=== PATIENT | male | born 1990 | race Caucasian/White ===

== ENCOUNTER 2017-06-10 08:39 | Inpatient (IN) | payer BC, OTHER ==
[~2017-06-10] VITALS: Ht 165.1 cm; Wt 95.3 kg
[2017-06-10 10:30] VITALS: BP 137/85
--- NOTE | 2017-06-10 10:30 | NUR ---
PRE-ADMISSION Pt is a 26 yr old male, AA&Ox4. pt is presenting himself to [facility] for ETOH use and Benzo use. Pt is accompanied by his parents. Pt is noted with anxiety m/b difficulty staying still. Pt states last use was on 06/09/17. VS are 137/85, P 91, R 16, O2 96%, T 97.9. Pt was seen and examined by Dr. Powers. Pt will be admitted to the 3rd floor.
[2017-06-10] MEDS ORDERED: MIRALAX 17 GM POWD.PACK PO PRN (11:00)
[2017-06-10] MEDS ORDERED: MAGNESIUM HYDROXIDE 30 ML LIQUID UDC PO PRN (11:00)
[2017-06-10] MEDS ORDERED: IBUPROFEN 400 MG TABLET PO PRN (11:00)
[2017-06-10] MEDS ORDERED: MAG HYDROX/AL HYDROX/SIMETH 30 ML LIQUID UDC PO PRN (11:00)
[2017-06-10] MEDS ORDERED: LORAZEPAM 2 MG/1 ML VIAL IM PRN (11:00)
[2017-06-10] MEDS ORDERED: ONDANSETRON ODT 4 MG TAB.RAPDIS SL PRN (11:00)
[2017-06-10] MEDS ORDERED: THIAMINE HCL 200 MG/2 ML VIAL IM ONE (11:00)
[2017-06-10] MEDS ORDERED: ONDANSETRON 4 MG/2 ML VIAL IM PRN (11:00)
[2017-06-10] MEDS ORDERED: CLONIDINE HCL 0.1 MG TABLET PO PRN (11:00)
[2017-06-10] MEDS ORDERED: LOPERAMIDE HCL 2 MG CAPSULE PO PRN ×2 (11:00)
[2017-06-10] MEDS ORDERED: LORAZEPAM 1 MG TABLET PO PRN ×2 (11:00)
[2017-06-10] MEDS ORDERED: DICYCLOMINE HCL 20 MG TABLET PO PRN (11:00)
--- NOTE | 2017-06-10 11:30 | NUR ---
MEDICATION REFUSED Pt refused to take Vitamin B1 1ml IM x3. Pt was educated on benefits of Vit B1 but pt refused.
[2017-06-10 11:39] LABS: *AMPHETAMINE, URINE NEGATIVE (NEGATIVE); *BARBITURATE, URINE NEGATIVE (NEGATIVE); *CANNABINOID, URINE NEGATIVE (NEGATIVE); *COCCAINE, URINE NEGATIVE (NEGATIVE); *OPIATE, URINE POSITIVE (NEGATIVE); *PHENCYCLIDINE SCREEN,URINE NEGATIVE (NEGATIVE)
[2017-06-10 11:40] LABS: BASOPHILS # (AUTO) 0.1 K/uL (0.0-8.0); BASOPHILS % (AUTO) 0.8 % (0.0-2.0); EOSINOPHILS # (AUTO) 0.3 K/uL (0.0-0.7); EOSINOPHILS % (AUTO) 3.4 % (0.0-7.0); HEMATOCRIT 44.5 % (36.7-47.1); HEMOGLOBIN 15.6 g/dL (12.5-16.3); LYMPHOCYTES # (AUTO) 1.8 K/uL (20.0-40.0); LYMPHOCYTES % (AUTO) 22.1 % (20.5-51.5); MEAN CORPUSCULAR HEMOGLOBIN 32.4 uug (23.8-33.4); MEAN CORPUSCULAR HGB CONC 35 g/dL (32.5-36.3); MEAN CORPUSCULAR VOLUME 92.7 fL (73.0-96.2); MONOCYTES # (AUTO) 0.8 K/uL (2.0-10.0); MONOCYTES % (AUTO) 9.4 % (0.0-11.0); NEUTROPHILS # (AUTO) 5.2 K/uL (1.8-8.9); NEUTROPHILS % (AUTO) 64.3 % (38.5-71.5); PLATELET COUNT (AUTO) 260 K/uL (152-348); WHITE BLOOD COUNT (AUTO) 8.1 K/uL (3.6-10.2)
[2017-06-10 11:56] LABS: ALANINE AMINOTRANSFERASE 103 U/L (16-63); ALKALINE PHOSPHATASE 102 U/L (50-136); AMYLASE 32 U/L (25-115); ASPARTATE AMINOTRANSFERASE 66 U/L (15-37); BILIRUBIN,TOTAL 0.5 mg/dL (0.2-1.0); CARBON DIOXIDE 26 mmol/L (21-32); CHLORIDE 106 mmol/L (98-107); GLUCOSE 94 mg/dL (74-106); MAGNESIUM 1.9 mg/dL (1.8-2.4); POTASSIUM 4.4 mmol/L (3.5-5.1); TOTAL PROTEIN, SERUM 7.1 g/dL (6.4-8.2); UREA NITROGEN, BLOOD 20 mg/dL (7-18)
[2017-06-10 11:58] LABS: ETHANOL < 3 MG/DL (0-0)
[2017-06-10 12:00] VITALS: BP 131/92
[2017-06-10] MEDS: LORAZEPAM 1 MG TABLET PO SCH ×3 (13:32→20:30)
--- NOTE | 2017-06-10 14:18 | NUR ---
ADMISSION NOTE Pt is a 26 yr old male, AA&Ox4. Pt is presenting himself to [facility] for etoh and benzo use. Pt is observed wtih increase anxiety m/b difficulty staying still. Skin is intact, warm and moist to touch. Pt is c/o nausea and headache. Pt denies any SI/HI. Pt states of having PMH of Anxiety and Depression and Gynecomastia reduction surgery. Pt denies any hx of seizures. Pt denies any home medication and PCP. Pt states he would use substances to "numb" his depression. SUBSTANCE USE: 1. ETOH - Pt states of binge drinking 750ml of Vodka, Gin and occasionally beer 3-4 days a week. Pt states of drinking at the age of 22 yrs old but has worsen about 1.5 yrs ago. Last drink was on 06/09/17, pt states of drinking 500mL of vodka. 2. Xanax - Pt states of consuming 6-10mg PO PRN on a daily basis for the past 1.5 yrs. Pt states of first using Xanax was at the age of 19 yrs old. Last use was on 06/09/17, Pt states of taking Addendum: 06/10/17 at 1551 by CHADWICK ACEVEDO LVN Continuation of documentation: 4mg PO. 3. Hydrocodone - Pt states of taking intermittently unknown amounts. Pt states he started taking it "a few months ago". Pt states that on 06/09/17 was the last use and took 15mg. 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 Pt states he relapsed to suppress his emotions. CIWA score upon admissions is 11. Pt was seen and examined by Dr. Powers with new order to start on 5 day Ativan taper. Pt was educated on plan of care and medication regimen. Pt was able to verbalize understanding. Pt was oriented to unit and room. Pt will be on seizure precautions. Bed kept in low position and locked with side rails up x2. Pt denies any allergies and follows a regular diet. Will continue to monitor.
[2017-06-10 16:00] VITALS: BP 131/76
--- NOTE | 2017-06-10 19:18 | NUR ---
END OF SHIFT Pt is a 26 yr old male, AA&Ox4. Pt is a newly admitted for ETOH/Benzo withdrawal and started on 5 day Ativan taper as ordered. Pt has been noted with increase anxiety m/b difficulty staying still and fidgety. Pt c/o nausea and headache but refused Zofran PRN and Motrin PRN. Pt was encouraged increase fluid intake for hydration. Skin is intact, warm and moist to touch. No PRNs were given. Last CIWA score was 8 at 1600. Pt is on seizure precautions. Bed kept in low position and locked with side rails padded and up x2. Call light is within reach.
--- NOTE | 2017-06-10 19:18 | NUR ---
START OF SHIFT NOTE: 26 year old male presented for Benzodiazepines/Xanax, ETOH/Vodka, and Hydrocodone withdrawal, continues ordered 5 day Ativan taper, which tolerated well. Patient reports NKA, Patient is on Seizures and Fall Precautions. Patient is alert and oriented x4, denies hallucinations and SI/HI. Patient appears sad with poor eye contact. Encouraged to express his feelings. Patient noted disheveled, unkempt with uncombed hair. CIWA =8 @1600 per day shift nurse report: patient presented with anxiety, agitation, nervousness, restlessness, fatigue, sweating, nausea, and headache. Patient remains compliant with treatment, medications, and diet regime per day shift nurse report. No PRN Medications was given during the day shift. Encouraged to fluids intake as tolerated. Encouraged to attend group activities. All needs met. Safety measures in place: Call light within reach, bed is locked in lowest position, padded bed rails up bilaterally. Patient endorsed by outgoing day shift nurse. Will continue to monitor closely.
[2017-06-10 20:00] VITALS: BP 150/104
[2017-06-10] MEDS: diphenhydrAMINE 50 MG CAPSULE PO PRN (20:21)
--- NOTE | 2017-06-10 20:21 | NUR ---
PRN BENADRYL 50 MG 1 CAPSULE PO ADMINISTRATION PRN BENADRYL 50 MG PO ADMINISTRATED FOR INSOMNIA ORDERED. PATIENT TOLERATED WELL. ALL SAFETY MEASURES IN PLACE: CALL LIGHT WITHIN REACH, BED LOCKED IN LOWEST POSITION, PADDED BED RAILS UP X2. WILL CONTINUE TO MONITOR CLOSELY.2200
--- NOTE | 2017-06-10 20:24 | NUR ---
PRN CLONIDINE 0.1 MG 1 TAB PO ADMINISTRATION PRN Clonidine 0.1 mg 1 tab PO administrated for BP 150/104 as ordered. Patient tolerated well. All needs met. Safety measures in place: Call light within reach, bed is locked in lowest position, padded bed rails up bilaterally. Will continue to monitor closely.
--- NOTE | 2017-06-10 21:21 | NUR ---
RE-ASSESSMENT PRN Benadryl 50 mg PO administrated for insomnia @ as ordered was effective. Patient is sleeping. RR 16. Respirations are even and unlabored. All needs met. Safety measures in place: Call light within reach, bed is locked in lowest position, padded bed rails up bilaterally. Will continue to monitor closely. Addendum: 06/11/17 at 0134 by BRYAN LOBO RN PRN Benadryl 50 mg PO administrated for insomnia @2120 as ordered was effective.
--- NOTE | 2017-06-10 21:24 | NUR ---
RE-ASSESSMENT BP 126/76. PRN Clonidine 0.1 mg 1 tab administrated for BP 150/104 @2023 was effective. Patient is sleeping. RR 16. Respirations are even and unlabored. All needs met. Safety measures in place: Call light within reach, bed is locked in lowest position, padded bed rails up bilaterally. Will continue to monitor closely.
[2017-06-10] MEDS: ACETAMINOPHEN 325 MG TABLET PO PRN (22:08)
--- NOTE | 2017-06-10 22:08 | NUR ---
PRN TYLENOL 650 MG PO ADMINISTRATION PRN TYLENOL 650 MG ADMINISTRATED FOR BODY ACHES "9/10" ORDERED. PATIENT TOLERATED WELL. ALL SAFETY MEASURES IN PLACE: CALL LIGHT WITHIN REACH, BED LOCKED IN LOWEST POSITION, PADDED BED RAILS UP X2. WILL CONTINUE TO MONITOR CLOSELY.
--- NOTE | 2017-06-10 23:08 | NUR ---
RE-ASSESSMENT PRN Tylenol 650 mg PO administrated for body aches "/" @2208 as ordered was effective. Patient is sleeping. RR 15. Respirations are even and unlabored. All needs met. Safety measures in place: Call light within reach, bed is locked in lowest position, padded bed rails up bilaterally. Will continue to monitor closely.
[2017-06-11] VITALS: BP 137/86
[2017-06-11 04:00] VITALS: BP 126/79
--- NOTE | 2017-06-11 07:35 | NUR ---
START OF SHIFT Pt is a 26 yr old male, AA&Ox4. Pt was admitted on 06/10/17 for ETOH/Benzo withdrawal and is on 5 day Ativan taper as ordered. Received report from computer network and systems engineer nurse. Pt was given Clonidine PO PRN, Tylenol, PRN, and Benadryl PO PRN during the night. Medication was effective. Pt slept for 8 hrs. Last CIWA score was 8. Pt is currently in bed sleeping with respirations even and unlabored. Skin is intact, warm and moist to touch. Pt is on seizure precautions. Bed kept in low position and locked with side rails padded and up x2. Call light is within reach. Will continue to monitor.
[2017-06-11 08:06] LABS: HEPATITIS B SURFACE AG Negative (Negative)
[2017-06-11 08:19] VITALS: BP 139/98
[2017-06-11] MEDS: MULTIVITAMINS,THERAPEUTIC TABLET PO SCH (08:49)
[2017-06-11] MEDS: THIAMINE HCL 100 MG TABLET PO SCH (08:49)
[2017-06-11] MEDS: LORAZEPAM 1 MG TABLET PO SCH ×3 (08:49→20:33)
[2017-06-11] MEDS: FOLIC ACID 1 MG TABLET PO SCH (08:49)
[2017-06-11] MEDS ORDERED: TUBERCULIN,PURIF.PROT.DERIV. 5 TU/0.1 ML TEST ID ONE (09:00)
[2017-06-11] MEDS ORDERED: BUPRENORPHINE HCL 2 MG TAB.SUBL SL PRN (10:15)
[2017-06-11 12:21] VITALS: BP 119/93
[2017-06-11] MEDS: BUPRENORPHINE HCL 2 MG TAB.SUBL SL PRN (12:35)
[2017-06-11] MEDS: IBUPROFEN 600 MG TABLET PO PRN (12:35)
[2017-06-11] MEDS: METHOCARBAMOL 750 MG TABLET PO PRN (12:35)
--- NOTE | 2017-06-11 12:37 | NUR ---
PRN GIVEN Pt is c/o increase anxiety and muscle aches. pt is noted with facial sweats and enlarged pupils. COWS score is 8. Subutex 2mg SL PRN, Motrin 600mg PO PRN and Robaxin 750mg PO PRN was given as ordered. Medication grant well. Encouraged increase fluid intake. Will continue to monitor.
--- NOTE | 2017-06-11 13:36 | NUR ---
PRN RE-ASSESSMENT Subutex 2mg SL PRN, Motrin 600mg PO PRN and Robaxin 750mg PO PRN was effective. Pt states, "I feel much better". COWS score is 5. Encouraged increase fluid intake. Will continue to monitor.
[2017-06-11 16:00] VITALS: BP 142/87
--- NOTE | 2017-06-11 19:12 | NUR ---
END OF SHIFT Pt is a 26 yr old male, AA&Ox4. Pt was admitted on 06/10/17 for ETOH/Benzo withdrawal and is on 5 day Ativan taper as ordered. Pt has been noted with increase anxiety m/b difficulty staying still and fidgety. Pt c/o generalized body aches. Pt received Motrin 600mg PO PRN, Robaxin 750mg PO PRN and Subutex 2 mg SL PRN for COWS score of 8 at 1235. Medication was effective. Pt was encouraged increase fluid intake. Pt has been cooperative with medication regimen and plan of care. Pt attended group. Skin is intact, warm and moist to touch. Last CIWA score was 9 and COWS score was 5 at 1600. Pt is on seizure precautions. Bed kept in low position and locked with side rails padded and up x2. Call light is within reach.
--- NOTE | 2017-06-11 19:12 | NUR ---
START OF SHIFT NOTE: Patient continues 5 day Ativan Taper ordered for Benzodiazepines/Klonopin PO, Opioid/Bighorn PO withdrawal. He is tolerated well. Patent reports NKA, is on Full Code, Regular Diet, is on Fall and Seizures Precautions. Patient denies history of withdrawal-induced seizures. Patient is alert and oriented x4. Patient appears anxious, agitated, c/o irritability, sad, worry, and easily overwhelmed. He is noted unshaven, disheveled, unkempt, and uncombed. His clothes are scattered all over the floor. Encouraged to independently perform hygiene care. Education provided in safety and hygiene care. Patient verbalized understanding. Last COWS=8,CIWA=7 @1635. During the day shift patient presented with moderate withdrawal symptoms of anxiety, agitation, nervousness, stomach cramps, tremors, sweating, nasal congestion, and body aches. PRN Subutex 2 mg SL PO administrated for anxiety, COWS=8 @1237, PRN Motrin 600 mg PO administrated @1237 for severe body aches, and PRN Robaxin 750 mg PO administrated for myalgia were effective per day shift nurse report. Patient remains compliant with treatment, medications and diet regime. Respirations are even and unlabored. Patient denies chest pain and cough. Skin remains intact, warm and dry to touch. Encouraged to fluid intake as tolerated. Patient attended day groups activities. All needs met. Safety measures in place: Call light within reach, bed is locked in lowest position, padded bed rails up bilaterally. Patient endorsed by day shift nurse. Will continue to monitor closely.
[2017-06-11 20:00] VITALS: BP 153/94
[2017-06-11] MEDS: GABAPENTIN 300 MG CAPSULE PO SCH (20:33)
[2017-06-11] MEDS: CLONIDINE HCL 0.1 MG TABLET PO SCH (20:33)
[2017-06-11] MEDS: diphenhydrAMINE 50 MG CAPSULE PO PRN (20:33)
--- NOTE | 2017-06-11 20:33 | NUR ---
PRN BENADRYL 50 MG 1 CAP PO ADMINISTRATION Patient c/o insomnia and asked aid. PRN Benadryl 50 mg 1 cap PO administrated with full glass of water as ordered. Patient tolerated well. All needs met. Safety measures on place. Call light within reach, bed in lowest position locked, padded rails up bilaterally. Will continue to monitor closely.
--- NOTE | 2017-06-11 21:33 | NUR ---
RE-ASSESSMENT Patient is sleeping. RR 16. Respirations even and unlabored. PRN Benadryl 50 mg 1 cap PO administrated for insomnia @2032 as ordered was effective. All needs met. Safety measures on place. Call light within reach, bed in lowest position locked, padded rails up bilaterally. Will continue to monitor closely.
[2017-06-12] VITALS: BP 123/68
[2017-06-12 04:00] VITALS: BP 123/72
--- NOTE | 2017-06-12 06:53 | NUR ---
END OF SHIFT NOTE Patient is a 26 year male admitted for Benzodiazepines/Xanax, Alcohol/"Vodka" and Opioid/Hydrocodone withdrawal under medical supervision, continues ordered 5 Day Ativan Taper. Withdrawal symptoms was closely monitored. Patient tolerated well. Patient is alert and oriented x4. CIWA=8@2000, ,CIWA=9 @0000, and the most recent, CIWA=8@0400. Patient presented with anxiety, agitation, nervousness, nasal congestion, tremors, diaphoresis, insomnia, mild headache and general body discomfort, such as bloating, body aches, myalgia, and restlessness. Patient appears worry with poor eye contact. Education provided to use of Relaxation Techniques: deep breathing exercises, guided imagery, and visualization. Patient noted disheveled, unshaven, unkempt, and uncombed. His clothes are scattered around the room on the floor. Education in safety and hygiene care provided. Encouraged to independently perform hygiene care. PRN Benadryl 50 mg PO administrated for insomnia @2032 was effective. Patient slept 6 hours, intake 1,302 ml, voided x4. All needs met. Safe and calm environment with minimized noises was provided. Patient slept 7 hours, intake 700 ml, voided x3. Safety measures in the place: Call light within reach, bed in the lowest position locked, padded rails up x2. Patient endorsed to day shift nurse.
--- NOTE | 2017-06-12 07:30 | NUR ---
START OF SHIFT Pt is a 26 yr old male, AA&Ox4. Pt was admitted on 06/10/17 for ETOH/Benzo withdrawal and is on 5 day Ativan taper as ordered. Received report from shift production associate nurse. Pt was given Benadryl PO PRN for sleep during the night. Medication was effective. Pt slept for 7 hrs. Last CIWA score was 8. Pt is currently in bed resting in be with respirations even and unlabored. Pt is c/o generalized pain and increase anxiety. Skin is intact, warm and moist to touch. Pt is on seizure precautions. Bed kept in low position and locked with side rails padded and up x2. Call light is within reach. Will continue to f/u.
[2017-06-12 08:00] VITALS: BP 138/78
[2017-06-12] MEDS ORDERED: LORAZEPAM 1 MG TABLET PO SCH ×2 (09:00→21:00)
[2017-06-12] MEDS: BUPRENORPHINE HCL 2 MG TAB.SUBL SL PRN (09:15)
[2017-06-12] MEDS: METHOCARBAMOL 750 MG TABLET PO PRN (09:15)
[2017-06-12] MEDS: MULTIVITAMINS,THERAPEUTIC TABLET PO SCH (09:15)
[2017-06-12] MEDS: FOLIC ACID 1 MG TABLET PO SCH (09:15)
[2017-06-12] MEDS: IBUPROFEN 600 MG TABLET PO PRN (09:15)
[2017-06-12] MEDS: GABAPENTIN 300 MG CAPSULE PO SCH ×3 (09:15→20:41)
[2017-06-12] MEDS: THIAMINE HCL 100 MG TABLET PO SCH (09:15)
--- NOTE | 2017-06-12 09:15 | NUR ---
PRN GIVEN Pt is c/o increase anxiety and muscle aches. pt is noted with facial sweats and enlarged pupils. COWS score is 9. Subutex 2mg SL PRN, Motrin 600mg PO PRN and Robaxin 750mg PO PRN was given as ordered. Medication grant well. Encouraged increase fluid intake. Will continue to monitor.
[2017-06-12] MEDS: CLONIDINE HCL 0.1 MG TABLET PO SCH ×3 (09:16→20:42)
--- NOTE | 2017-06-12 10:00 | NUR ---
PRN RE-ASSESSMENT Motrin PRN, Robaxin PRN, Subutex 2mg SL PRN was effective. Pt continues to c/o muscle aches but is able to grant pain level. Pt is still noted with anxiety m/b difficulty staying still and he is c/o cold chills. COWS score was 5. Will continue to monitor.
[2017-06-12] MEDS ORDERED: KETOROLAC TROMETHAMINE 30 MG INJ IM PRN (11:00)
[2017-06-12 12:00] VITALS: BP 139/93
[2017-06-12] MEDS: LORAZEPAM 1 MG TABLET PO SCH ×2 (13:20→17:00)
[2017-06-12 16:00] VITALS: BP 123/77
--- NOTE | 2017-06-12 17:00 | NUR ---
ATIVAN HELD Pt was noted with increase drowsiness and was too sedative. Ativan 1mg PO PRN was held. Will continue to monitor.
--- NOTE | 2017-06-12 18:58 | NUR ---
START OF SHIFT NOTE: Presented patient is a 26 year male, continues ordered 5 Day Ativan Taper ordered for Benzodiazepines/Xanax, Alcohol/"Vodka", Opioid/Hydrocodone withdrawal under medical supervision. Withdrawal symptoms was closely monitored. Patent reports PAYAL, is on Full Code, Regular Diet, is on Fall and Seizures Precautions. He is alert and oriented x4. Patient is a cooperative, appears anxious, agitated, c/o irritability, sad, worry, and fearful with flat affect. He is noted unshaven, disheveled, unkempt, and uncombed. His clothes are scattered around the room on the floor. Encouraged to independently perform hygiene care. Education provided in safety and hygiene care. Patient verbalized understanding. Latest COWS=11, CIWA=7 @1600. Patient presented with anxiety, agitation, nausea, nervousness, body aches, myalgia, tremors, sweating, fatigue, and restlessness. Skin is intact, warm and dry to touch. Encouraged to fluid intake as tolerated. Patient attended groups activities. PRN Subutex 2 mg SL PO administrated for anxiety for COWS=3 @0915, Motrin 600 mg PO administrated for body aches: "8/10" @0915, and PRN Robaxin 750 mg PO administrated for myalgia @0915 were effective per day shift nurse report. Patient remains compliant with treatment, medications and diet regime. All needs met. Safety measures in place: Call light within reach, bed is locked in lowest position, padded bed rails up bilaterally. Patient endorsed by day shift nurse. Will continue to monitor closely.
--- NOTE | 2017-06-12 18:58 | NUR ---
END OF SHIFT Pt is a 26 yr old male, AA&Ox4. Pt was admitted on 06/10/17 for ETOH/Benzo withdrawal and is on 5 day Ativan taper as ordered. Pt has been noted with increase anxiety m/b difficulty staying still and fidgety. Pt c/o generalized body aches. Pt received Motrin 600mg PO PRN, Robaxin 750mg PO PRN and Subutex 2 mg SL PRN for COWS score of 9 at 0915. Medication was effective. Pt was encouraged increase fluid intake. Skin is intact, warm and moist to touch. Last CIWA 11 score was and COWS score was 7 at 1600. Pt is on seizure precautions. Call light is within reach.
[2017-06-12 20:00] VITALS: BP 123/66
[2017-06-12] MEDS: diphenhydrAMINE 50 MG CAPSULE PO PRN (20:42)
[2017-06-12] MEDS: BACLOFEN 10 MG TABLET PO SCH (20:42)
--- NOTE | 2017-06-12 20:42 | NUR ---
PRN BENADRYL 50 MG 1 CAP PO ADMINISTRATION Patient c/o insomnia. PRN Benadryl 50 mg 1 capsule PO administrated with full glass of water as ordered. Patient tolerated well. All needs met. Safety measures on place. Call light within reach, bed in lowest position locked, padded rails up bilaterally. Will continue to monitor closely.
--- NOTE | 2017-06-12 21:42 | NUR ---
RE-ASSESSMENT Patient is sleeping. Respirations even and unlabored. RR 16. PRN Benadryl 1 cap PO administrated to patient @2041 for insomnia was effective. All needs met. Safety measures on place. Call light within reach, bed in lowest position and locked, padded rails up bilaterally. Will continue to monitor closely.
[2017-06-13] VITALS: BP 116/65
[2017-06-13 04:00] VITALS: BP 119/64
[2017-06-13] MEDS: METHOCARBAMOL 750 MG TABLET PO PRN ×2 (04:47→09:27)
--- NOTE | 2017-06-13 04:47 | NUR ---
PRN ROBAXIN 750 MG 1 TAB PO ADMINISTRATION Patient c/o myalgia. PRN Robaxin 750 mg 1 tab PO for myalgia administrated with full glass of water as ordered. Patient tolerated well. All needs met. Safety measures on place. Call light within reach, bed locked in lowest position, padded rails up bilaterally. Will continue to monitor closely.
--- NOTE | 2017-06-13 05:47 | NUR ---
RE-ASSESSMENT Patient is sleeping. Respirations even and unlabored. RR:16. PRN Robaxin 750 mg 1 tab administrated PO for myalgia was effective. All needs met. Safety measures on place. Call light within reach, bed in lowest position and locked, padded rails up bilaterally. Will continue to monitor closely.
--- NOTE | 2017-06-13 06:55 | NUR ---
END OF SHIFT NOTE Endorsed patient is a 26 year old male admitted for Benzodiazepines/Xanax, Alcohol/"Vodka" and Opioid/Hydrocodone withdrawal. He is continues ordered 5 Day Ativan Taper. Withdrawal symptoms was closely monitored. Patient is alert and oriented x4. Patient reports "irritable mood, increased anxiety, depression, and restlessness". Emotional support provided. Patient noted diaphoretic, with clammy skin, disheveled, unkempt, unshaven with uncombed hair. His clothes thrown on floor. Educated in safety and hygiene care. Encouraged to independently perform hygiene care. CIWA=12 @2000, CIWA=9 @0000. Last CIWA=9 @0400. Patient presented with withdrawal symptoms of anxiety, agitation, nervousness, abdominal cramps, body aches, myalgia, tremors, sweating, nasal congestion, and restlessness. PRN Benadryl 50 mg PO administrated for insomnia @2041, and PRN Robaxin 750 mg PO administrated for myalgia @0447 were effective. Patient slept 6 hours, intake 1,302 ml, voided x4. All needs met. Safe and calm environment with minimized noises was provided. Patient slept 9 hours, intake 1,153 ml, voided x3. Safety measures in the place: Call light within reach, bed in the lowest position locked, padded rails up x2. Patient endorsed to day shift nurse.
--- NOTE | 2017-06-13 07:15 | NUR ---
START OF SHIFT : PATIENT IS A 26 YR OLD MALE ADMITTED TO [facility] ON FOR WITHDRAWAL FROM ALCOHOL, BENZODIAZEPINES AND OPIATES. HE IS ON A 5 DAY ATIVAN TAPER AND TODAY IS DAY 4. PATIENT IS ASLEEP IN BED AT THIS TIME, BREATHING EVEN AND UNLABORED. PRN MEDS GIVEN ON PM SHIFT : BENADRYL AND ROBAXIN. LAST COWS 9 @ 0400. WILL CONTINUE TO FOLLOW MD PLAN OF CARE
[2017-06-13 08:00] VITALS: BP 145/80
[2017-06-13] MEDS: LORAZEPAM 1 MG TABLET PO SCH ×2 (09:22→14:32)
[2017-06-13] MEDS: GABAPENTIN 300 MG CAPSULE PO SCH ×3 (09:22→21:53)
[2017-06-13] MEDS: BACLOFEN 10 MG TABLET PO SCH ×3 (09:22→21:53)
[2017-06-13] MEDS: THIAMINE HCL 100 MG TABLET PO SCH (09:22)
[2017-06-13] MEDS: FOLIC ACID 1 MG TABLET PO SCH (09:22)
[2017-06-13] MEDS: MULTIVITAMINS,THERAPEUTIC TABLET PO SCH (09:22)
[2017-06-13] MEDS: CLONIDINE HCL 0.1 MG TABLET PO SCH ×3 (09:27→21:53)
--- NOTE | 2017-06-13 09:30 | NUR ---
PRN ROBAXIN ROBAXIN 750MG PO GIVEN FOR PT REPORTS OF PAIN 09/22, WILL CONTINUE TO MONITOR
--- NOTE | 2017-06-13 10:30 | NUR ---
ROBAXIN REASSESS ROBAXIN EFFECTIVE, PATIENT STATES HIS PAIN LEVEL IS NOW 4/10, WILL CONTINUE TO MONITOR
[2017-06-13 12:00] VITALS: BP 121/69
[2017-06-13] MEDS: BUPRENORPHINE HCL 2 MG TAB.SUBL SL SCH ×3 (13:08→21:52)
[2017-06-13] MEDS ORDERED: DICY20TA28 PO (13:23)
[2017-06-13] MEDS ORDERED: GABA-534 PO ×2 (13:23)
[2017-06-13] MEDS ORDERED: DIPH50CA37 PO (13:23)
[2017-06-13] MEDS ORDERED: CLON0.1T14 PO (13:23)
[2017-06-13] MEDS ORDERED: METH-406 PO (13:23)
[2017-06-13] MEDS ORDERED: IBUP-1955 PO (13:23)
[2017-06-13 16:00] VITALS: BP 125/80
--- NOTE | 2017-06-13 18:47 | NUR ---
END OF SHIFT : PATIENT IS A 26 YR OLD MALE ADMITTED TO [facility] ON 06/10/17 FOR WITHDRAWAL FROM ALCOHOL/VODKA AND BENZODIAZEPINES /XANAX. THIS IS DAY 4 OF A 5 DAY ATIVAN/ MODIFIED SUBUTEX TAPER TOLERATED WELL. PATIENT APPEARS DEPRESSED WITH A SAD FLAT AFFECT. HE HAS GENERALIZED BODY ACHES, RESTLESSNESS AND FATIGUE. HE HAS ATTENDED GROUPS TODAY AND PARTICIPATES WITH HIS PEERS. HE TOOK A SHOWER TODAY. PRN MEDS GIVEN ON THIS SHIFT : ROBAXIN. PATIENT HAD A FLUID INTAKE OF 1000 ML, 3 VOIDS AND 0 BM. LAST COWS 11 AND CIWA 11 @ 1600. CONTINUE TO FOLLOW MD PLAN OF CARE.
--- NOTE | 2017-06-13 19:30 | NUR ---
START of shift note : Patient is a 26 year male, admitted for medically supervised withdrawal from Benzodiazepines/Xanax, Alcohol/"Vodka", Opioid/Hydrocodone on 06/10/2017, pt. is on 5 Day Ativan Taper and mod. Subutex taper. Patent reports NKA, is on Full Code, Regular Diet, is on Fall and Seizures Precautions. He is alert and oriented x4. Patient is a anxious, restless time to time, sad facial expression, flat affect. Encouraged patient to participate in group therapies and verbalize feelings. Educated patient regarding the importance of compliance to treatment and medication regime, patient verbalized understanding. Latest COWS=11, CIWA=11 @1600. Patient complains of increased level of anxiety, restlessness , nervousness, body ache, tremors x2-x3 a day, fatigue. Skin is intact, warm and dry to touch. Patient remains compliant with treatment, medications and diet regime. All needs met. Safety measures in place: Call light within reach, bed is locked in lowest position, padded bed rails up bilaterally. Patient endorsed by day shift nurse. Will continue to monitor closely.
[2017-06-13 20:00] VITALS: BP 138/95
[2017-06-13] MEDS ORDERED: LORAZEPAM 1 MG TABLET PO SCH (21:00)
--- NOTE | 2017-06-13 21:00 | NUR ---
PRN VISTARIL Pt. complains of increased level of anxiety. PRN VISTARIL given as ordered. Safety measures in place : bed on lowest position with side rails x2 up for safety, call light within reach. Will continue to monitor closely and offer help.
[2017-06-13] MEDS: TRAZODONE 100 MG TABLET PO SCH (21:52)
[2017-06-13] MEDS: HYDROXYZINE PAMOATE 25 MG CAPSULE PO PRN (21:53)
--- NOTE | 2017-06-13 22:00 | NUR ---
RE-ASSESSMENT ILSA Pt. is sleeping, RR=16, unlabored and even . Safety measures in place : bed on lowest position with side rails x2 up for safety, call light within reach. Will continue to monitor closely and offer help.
--- NOTE | 2017-06-14 06:44 | NUR ---
END of shift note : Patient is a 26 year male, admitted for medically supervised withdrawal from Benzodiazepines/Xanax, Alcohol/"Vodka", Opioid/Hydrocodone on 06/10/2017, pt. is on 5 Day Ativan Taper and mod. Subutex taper. Patent reports NKA, is on Full Code, Regular Diet, is on Fall and Seizures Precautions. PRN given during microbial specialist : VISTARIL. CIWA, COWS taken when pt. was awake, last CIWA=8, COWS=7 at 04:00 . Pt. slept all night through. Intake=1,276ml, voided x4, slept=7 hours. Safety measures in place : bed on lowest position with side rails x2 up for safety, all light within reach. Will continue to monitor closely and offer help.
--- NOTE | 2017-06-14 07:13 | NUR ---
START OF SHIFT : PATIENT IS A 26 YR OLD MALE ADMITTED TO [facility] ON FOR WITHDRAWAL FROM ALCOHOL, BENZODIAZEPINES AND OPIATES. HE IS ON A 5 DAY ATIVAN TAPER AND TODAY IS DAY 5. PATIENT IS ASLEEP IN BED AT THIS TIME, BREATHING EVEN AND UNLABORED. PRN MEDS GIVEN ON PM SHIFT : VISTARIL. LAST COWS 7 AND CIWA 8. PATIENT SLEPT FOR 7 HOURS. WILL CONTINUE TO FOLLOW MD PLAN OF CARE
[2017-06-14 08:00] VITALS: BP 161/91
[2017-06-14] MEDS: BACLOFEN 10 MG TABLET PO SCH (08:33)
[2017-06-14] MEDS: THIAMINE HCL 100 MG TABLET PO SCH (08:33)
[2017-06-14] MEDS: FOLIC ACID 1 MG TABLET PO SCH (08:34)
[2017-06-14] MEDS: CLONIDINE HCL 0.1 MG TABLET PO SCH ×3 (08:34→21:49)
[2017-06-14] MEDS: BUPRENORPHINE HCL 2 MG TAB.SUBL SL SCH ×2 (08:34→21:48)
[2017-06-14] MEDS: MULTIVITAMINS,THERAPEUTIC TABLET PO SCH (08:34)
[2017-06-14] MEDS: LORAZEPAM 1 MG TABLET PO SCH ×3 (08:34→21:49)
[2017-06-14] MEDS: GABAPENTIN 300 MG CAPSULE PO SCH ×3 (08:34→21:49)
[2017-06-14] MEDS ORDERED: LORAZEPAM 1 MG TABLET PO SCH (09:00)
[2017-06-14 12:00] VITALS: BP 120/60
[2017-06-14] MEDS: METHOCARBAMOL 750 MG TABLET PO PRN (12:50)
--- NOTE | 2017-06-14 12:50 | NUR ---
PRN ROBAXIN ROBAXIN 750MG PO GIVEN FOR PAIN 09/22 GENERALIZED BODY/BACK ACHE
--- NOTE | 2017-06-14 13:50 | NUR ---
PRN REASSESS PT STATES PAIN IS NOW 4/10, ROBAXIN EFFECTIVE
[2017-06-14] MEDS: BACLOFEN 20 MG TABLET PO SCH ×2 (14:24→21:49)
[2017-06-14] MEDS: DICYCLOMINE HCL 20 MG TABLET PO SCH ×2 (14:25→21:50)
--- NOTE | 2017-06-14 14:25 | NUR ---
PRN MIRALAX 17GM PO GIVEN FOR C/O CONSTIPATION X 2 DAYS, WILL CONTINUE TO MONITOR
[2017-06-14] MEDS: FAMOTIDINE 20 MG TABLET PO SCH (14:30)
[2017-06-14] MEDS: LIDOCAINE 5% PATCH TD SCH (14:30)
[2017-06-14 16:00] VITALS: BP 104/69
--- NOTE | 2017-06-14 18:48 | NUR ---
PATIENT IS A 26 YR OLD MALE ADMITTED TO [facility] ON 06/10/17 FOR WITHDRAWAL FROM ALCOHOL/VODKA AND BENZODIAZEPINES /XANAX. THIS IS DAY 5 OF A 5 DAY ATIVAN/ MODIFIED SUBUTEX TAPER TOLERATED WELL. PATIENT STILL APPEARS DEPRESSED WITH A SAD FLAT AFFECT. HE HAS GENERALIZED BODY ACHES AND LOWER BACK PAIN WHICH IS PARTIALLY RELIEVED WITH A LIDOCAINE PATCH APPLIED TODAY.HE IS RESTLESS AND FATIGUED. HE HAS ATTENDED GROUPS TODAY AND PARTICIPATES WITH HIS PEERS. PRN MEDS GIVEN ON THIS SHIFT : ROBAXIN AND MIRALAX. PATIENT HAD A FLUID INTAKE OF 1800 ML, 4 VOIDS AND 0 BM. LAST COWS 10 AND CIWA 9 @ 1600. CONTINUE TO FOLLOW MD PLAN OF CARE.
--- NOTE | 2017-06-14 19:30 | NUR ---
START of shift note : Patient is a 26 year male, admitted for medically supervised withdrawal from Benzodiazepines/Xanax, Alcohol/"Vodka", Opioid/Hydrocodone on 06/10/2017, pt. is on 5 Day Ativan Taper and mod. Subutex taper. Patent reports NKA, is on Full Code, Regular Diet, is on Fall and Seizures Precautions. PRN given during a day shift : ROBAXIN, MIRALAX. CIWA, COWS taken when pt. was awake; last CIWA=9, COWS=10 at 16:00 . He is alert and oriented x4. Pt. states he feels better, spend more time in the activity room, socializing with other clients, playing games and watching TV. Encouraged to independently perform hygiene care. Instructed patient to maintain adequate fluid and nutritional intake. He complains of difficulty falling and staying asleep, increased level of anxiety. Safety measures in place : bed on lowest position with side rails x2 up for safety, all light within reach. Will continue to monitor closely and offer help.
--- NOTE | 2017-06-14 21:00 | NUR ---
PRN VISTARIL, BENADRYL Pt. complains of difficulty falling asleep, insomnia, increased level of anxiety. PRN VISTARIL, BENADRYL given as ordered. Safety measures in place : bed on lowest position with side rails x2 up for safety, call light within reach. Will continue to monitor closely and offer help.
[2017-06-14] MEDS: diphenhydrAMINE 50 MG CAPSULE PO PRN (21:49)
[2017-06-14] MEDS: HYDROXYZINE PAMOATE 25 MG CAPSULE PO PRN (21:49)
[2017-06-14] MEDS: TRAZODONE 100 MG TABLET PO SCH (21:50)
--- NOTE | 2017-06-14 22:00 | NUR ---
RE-ASSESSMENT EDA ROSENBAUM Pt. is sleeping, RR=16, unlabored and even . Safety measures in place : bed on lowest position with side rails x2 up for safety, call light within reach. Will continue to monitor closely and offer help.
--- NOTE | 2017-06-15 06:39 | NUR ---
END of shift note : Patient is a 26 year male, admitted for medically supervised withdrawal from Benzodiazepines/Xanax, Alcohol/"Vodka", Opioid/Hydrocodone on 06/10/2017, pt. is on 5 Day Ativan Taper and mod. Subutex taper. Patent reports NKA, is on Full Code, Regular Diet, is on Fall and Seizures Precautions. 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 CIWA, COWS taken when pt. was awake, last CIWA=9, COWS=8 at 04:00 . Rhzego=[id number], voided x3, BM=x1, slept=6 hours. Safety measures in place : bed on lowest position with side rails x2 up for safety, all light within reach. Will continue to monitor closely and offer help.
[2017-06-15 08:00] VITALS: BP 124/82
--- NOTE | 2017-06-15 08:05 | NUR ---
START OF SHIFT PT IS A 26 Y/O M ADMITTED ON 07/11/17 FOR MEDICALLY SUPERVISED ETOH, BENZO AND OPIATE WITHDRAWAL. PT IS PLACED ON A 5 DAY ATIVAN AND MODIFIED SUBUTEX TAPER AND TOLERATING WELL. PT PRESENTS DIAPHORESIS, CHILLS, CLAMMY SKIN, ANXIETY, AGITATION, RESTLESSNESS AND GENERALIZED BODY ACHES. LAST COWS 9 CIWA 8AND PRNS BENADRYL AND VISTARIL WAS GIVEN LAST NIGHT. ENCOURAGED PT TO INCREASE FLUIDS TO PROMOTE HYDRATION. SIDE RAILS UP X2, BED IN LOW POSITION. SAFETY MEASURES IN PLACE. CALL LIGHT WITHIN REACH. WILL CONTINUE TO MONITOR.
[2017-06-15] MEDS: GABAPENTIN 300 MG CAPSULE PO SCH ×3 (08:43→20:05)
[2017-06-15] MEDS: THIAMINE HCL 100 MG TABLET PO SCH (08:43)
[2017-06-15] MEDS: FAMOTIDINE 20 MG TABLET PO SCH (08:43)
[2017-06-15] MEDS: MULTIVITAMINS,THERAPEUTIC TABLET PO SCH (08:43)
[2017-06-15] MEDS: BACLOFEN 20 MG TABLET PO SCH ×3 (08:43→20:06)
[2017-06-15] MEDS: FOLIC ACID 1 MG TABLET PO SCH (08:43)
[2017-06-15] MEDS: IBUPROFEN 600 MG TABLET PO PRN (08:44)
[2017-06-15] MEDS: DICYCLOMINE HCL 20 MG TABLET PO SCH ×3 (08:44→20:05)
--- NOTE | 2017-06-15 08:44 | NUR ---
PRN/ IBUPROFEN PT C/O BACK PAIN 08/23 AND WAS RUBBING AT SITE. IBUPROFEN 600 MG PO PRN GIVEN, WILL CONTINUE TO MONITOR.
[2017-06-15] MEDS: CLONIDINE HCL 0.1 MG TABLET PO SCH ×3 (08:49→20:06)
[2017-06-15] MEDS: LIDOCAINE 5% PATCH TD SCH (08:50)
[2017-06-15] MEDS ORDERED: BUPRENORPHINE HCL 2 MG TAB.SUBL SL SCH (09:00)
[2017-06-15] MEDS ORDERED: LORAZEPAM 1 MG TABLET PO SCH (09:00)
--- NOTE | 2017-06-15 09:44 | NUR ---
REASSESSMENT PT REPORTED BACK PAIN NOW 5/10. WILL CONTINUE TO MONITOR.
[2017-06-15 12:16] VITALS: BP 125/65
[2017-06-15 16:00] VITALS: BP 121/70
--- NOTE | 2017-06-15 18:43 | NUR ---
END OF SHIFT PTS LAST COWS 6 AND CIWA 7. PT PRESENTS ANXIETY AND RESTLESSNESS HOWEVER STATES S/S OF W/D HAS SIGNIFICANTLY DECREASED WHILE BEING IN DETOX AND HE IS READY TO BE DISCHARGED TOMORROW. PT ATTENDED ALL GROUPS AND PARTICIPATED. IBUPROFEN PO PRN WAS GIVEN DURING SHIFT FOR BACK ACHE AND WAS EFFECTIVE. PT ATE 100% OF MEALS. FLUID INTAKE: 1796, VOIDED X5, BM :0. PT HAS BEEN COMPLIANT WITH MED REGIMEN AND TX PLAN. SAFETY MEASURES IN PLACE. 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
--- NOTE | 2017-06-15 18:43 | NUR ---
START OF SHIFT NOTE: 26 year old male presented for Benzodiazepines/Xanax, ETOH/Vodka, and Opioid/Hydrocodone withdrawal, completed 5 Day Ativan and Modified Subutex Taper. Withdrawal symptoms was closely monitored. Patient is alert and oriented x4. Patient appears sad, worry with poor eyes contact. Patient 's c/o " increased anxiety, depression, and irritability". Emotional support provided, and patient 's reassuring. Last COWS 6, CIWA 7 @1600. Patient presented with anxiety, agitation, nervousness, tremors, sweating, restlessness, fatigue, body aches, and stomach pain. Encouraged to attend group activities, to increasing oral fluids. PRN Motrin 600 mg PO administrated for back pain "08/23" administrated by day shift nurse @0844 was effective as day shift nurse reported. Patient remains compliant with treatment, medications, and diet regime per day shift nurse report. Patient's scheduled for discharging tomorrow, on 06/15/2017 at 0930. Safe and calm environment with minimized noises was provided. All needs met. Safety measures in the place: Call light within reach, bed in the lowest position locked, padded rails up x2. Patient endorsed by day shift nurse.
[2017-06-15 20:00] VITALS: BP 132/75
[2017-06-15] MEDS: ACETAMINOPHEN 325 MG TABLET PO PRN (20:05)
--- NOTE | 2017-06-15 20:05 | NUR ---
PRN TYLENOL 650 MG PO ADMINISTRATION Patient c/o Generalized low back pain level "6". PRN Tylenol 650 mg PO administrated with full glass of water as ordered. Patient tolerated well. All needs met. Safety measures on place. Call light within reach, bed in lowest position locked, padded rails up bilaterally. Will continue to monitor closely.
[2017-06-15] MEDS: TRAZODONE 100 MG TABLET PO SCH (20:07)
--- NOTE | 2017-06-15 21:05 | NUR ---
RE-ASSESSMENT Patient is sleeping. Respirations even and unlabored. RR 15. PRN Tylenol 650 mg PO administrated for low back pain "10/23" @2004 was effective. All needs met. Safety measures on place. Call light within reach, bed in lowest position locked, padded rails up bilaterally. Will continue to monitor closely.
[2017-06-16] VITALS: BP 115/69
[2017-06-16 04:00] VITALS: BP 109/54
--- NOTE | 2017-06-16 07:04 | NUR ---
END OF SHIFT NOTE: Presented patient is a 26 year old male completed 5 Day Ativan Taper ordered for Alcohol/Vodka withdrawal. Patient reports that "Ativan helped a lot with my withdrawal symptoms". Patient remains compliant with treatment, medications, and diet regime. Patient is alert and oriented x4. Patient noted anxious,easily overwhelmed with flat affect, and with poor eye contact. Patient expresses feelings of worthlessness. Patient denies SI/HI. Encouraged of feelings expresses, reassurance provided. Patient is disheveled, unshaved, unkempt, and uncombed. His clothes are dirty and patient refused to change them. Educated in safety and hygiene care. Encouraged to independently perform hygiene care COWS=10,CIWA=12 @2000, COWS=8, CIWA =6 @0000. Latest COWS=6, CIWA =5 @0400. Patient presented with anxiety, agitation, c/o nervousness, depression, tremors, abdominal pain, sweating, body aches, irritability, fatigue, and restlessness, per day shift nurse report. PRN Tylenol 650 mg PO administrated for low back pain at 2004 was effective. Patient remains compliant with treatment, medications, and diet regime. Skin remains intact, warm and dry to touch. Patient's scheduled for discharging today. Patient slept 9 hours, intake 1,000 ml, voided x3. Encouraged to fluid intake as tolerated. All needs met. Safety measures in the place: Call light within reach, bed in the lowest position locked, padded rails up x2. Patient endorsed to day shift nurse.
--- NOTE | 2017-06-16 07:36 | NUR ---
START OF SHIFT PT IS A 26 Y/O M ADMITTED ON 07/11/17 FOR MEDICALLY SUPERVISED ETOH, BENZO AND OPIATE WITHDRAWAL. PT COMPLETED MODIFIED ATIVAN AND SUBUTEX TAPER YESTERDAY AND IS STABLE. PT PRESENTS ANXIETY AND GENERALIZED BODY ACHES. LAST COWS 6 CIWA 5 AND TYLENOL PRN WAS GIVEN LAST NIGHT. PT REPORTS PT IS TO BE DISCHARGED TODAY AND PT STATES HE IS READY AND FEELING MOTIVATED. SIDE RAILS UP X2, BED IN LOW POSITION. SAFETY MEASURES IN PLACE. CALL LIGHT WITHIN REACH. WILL CONTINUE TO MONITOR.
[2017-06-16 08:00] VITALS: BP 118/64
[2017-06-16] MEDS: MULTIVITAMINS,THERAPEUTIC TABLET PO SCH (08:31)
[2017-06-16] MEDS: FAMOTIDINE 20 MG TABLET PO SCH (08:32)
[2017-06-16] MEDS: FOLIC ACID 1 MG TABLET PO SCH (08:32)
[2017-06-16] MEDS: THIAMINE HCL 100 MG TABLET PO SCH (08:32)
[2017-06-16] MEDS: BACLOFEN 20 MG TABLET PO SCH (08:32)
[2017-06-16 08:33] VITALS: BP 118/64
[2017-06-16] MEDS: DICYCLOMINE HCL 20 MG TABLET PO SCH (08:33)
[2017-06-16] MEDS: GABAPENTIN 300 MG CAPSULE PO SCH (08:33)
[2017-06-16] MEDS: CLONIDINE HCL 0.1 MG TABLET PO SCH (08:33)
[2017-06-16] MEDS: IBUPROFEN 600 MG TABLET PO PRN (08:38)
--- NOTE | 2017-06-16 08:38 | NUR ---
PRN IBUPROFEN 600 MG PO PRN GIVEN FOR 6/10 GENERALIZED BODY ACHES. WILL MONITOR FOR EFFECTIVENESS.
[2017-06-16] MEDS: LIDOCAINE 5% PATCH TD SCH (09:00)
--- NOTE | 2017-06-16 09:12 | NUR ---
REASSESSMENT PT REPORTED PAIN IS AT A TOLERABLE LEVEL NOW 5/10.
--- NOTE | 2017-06-16 09:20 | NUR ---
DISCHARGE NOTE PT IS IN STABLE CONDITION, VVS, A/OX4, RESPIRATIONS EVEN AND UNLABORED. PT INSTRUCTIONS GIVEN AND PT VERBALIZED UNDERSTANDING. LAST COWS 5 AND CIWA 5. PT HAS LEFT THE BUILDING WITH ALL BELONGINGS, DISCHARGE PAPERWORK, PRESCRIPTIONS AND HAS BEEN PICKED UP BY "[facility] [facility]. PT IS BEING TAKEN TO [facility].
== END 2017-06-16 09:20 | DRG 895 ==
LOC: SRC 09:58
PROVIDERS: ADMIT Internal Medicine; ATTEND Internal Medicine
PROC: HZ41ZZZ Group Counseling for Substance Abuse Treatment, Behavioral (ICD-10-PCS; principal; 2017-06-10)
PROC: HZ2ZZZZ Detoxification Services for Substance Abuse Treatment (ICD-10-PCS; principal; 2017-06-10)
PROC: HZ31ZZZ Individual Counseling for Substance Abuse Treatment, Behavioral (ICD-10-PCS; 2017-06-12)
DX: F10.230 Alcohol dependence with withdrawal, uncomplicated (principal); K70.10 Alcoholic hepatitis without ascites; I15.9 Secondary hypertension, unspecified; E86.0 Dehydration; F11.10 Opioid abuse, uncomplicated; F13.239 Sedative, hypnotic or anxiolytic dependence with withdrawal, unspecified; F32.9 Major depressive disorder, single episode, unspecified; F90.9 Attention-deficit hyperactivity disorder, unspecified type; Y90.0 Blood alcohol level of less than 20 mg/100 ml; Z80.42 Family history of malignant neoplasm of prostate; Z81.1 Family history of alcohol abuse and dependence; G47.00 Insomnia, unspecified; F51.4 Sleep terrors [night terrors]
CPT/HCPCS: 36415; 70030-TC; 80307; 80346; 80361; 83735; 85025; 86580; 86592; 86705; 86803; 87340; 87806; A4663; G0480; J1885; Q0163